=== PATIENT | male | born 1960 | race Two or more races ===

== ENCOUNTER 2021-02-02 15:27 | Observation (INO) | payer OTHER ==
[2021-02-02] MEDS ORDERED: ASPIRIN 81 MG PO STA (15:57)
--- NOTE | 2021-02-02 16:09 | ED ---
Recheck HPI - General Chief Complaint: Recheck/Abnormal Lab/Rx Stated Complaint: Sent by pcp Time Seen by Provider: 02/02/21 15:52 Source: patient Mode of arrival: ambulatory Limitations: no limitations - History of Present Illness Initial Comments: 60-year-old male with past history of hypertension that has since resolved with lifestyle changes with no other doors past medical history presenting to the ER today for chief complaint of sent for positive troponin. Patient states he went for an annual visit to his physician,. And mention that he has had increasing indigestion after eating for the past month. He states he has noticed some jaw pain he denies any arm pain chest pressure diaphoresis. Patient denies any shortness of breath leg swelling calf pain or history of DVT pulmonary embolism. Patient denies and recent surgeries, injuries or immobilization. Patient states that he had some routine labs drawn as well as a troponin by Dr. Sinha today and was told that he had elevated heart enzymes a few hours after leaving. HE states he had ate, showered and worked out in this time frame, he denies experiencing symptoms. Denies indigestion> Denies experiencing the indigestion when walking or working out ever. Patient states his BP is elevated but he states he was told he could be having a heart attack and is now stressed out. Patient otherwise appear in no distress, nondiaphoretic. He is pleasant without levign sign. EKG obtained in advanced triage. - Related Data Home Medications Medication Instructions Recorded Confirmed No Known Home Medications 02/02/21 02/02/21 Allergies Allergy/AdvReac Type Severity Reaction Status Date / Time No Known Allergies Allergy Verified 02/02/21 17:01 Review of Systems ROS Statement: Those systems with pertinent positive or pertinent negative responses have been documented in the HPI. ROS Other: All systems not noted in ROS Statement are negative. Past Medical History Past Medical History: GERD/Reflux History of Any Multi-Drug Resistant Organisms: None Reported Past Surgical History: No Surgical Hx Reported Past Psychological History: No Psychological Hx Reported Smoking Status: Never smoker Past Alcohol Use History: Rare Past Drug Use History: None Reported General Exam - General Exam Comments Initial Comments: General: The patient is awake and alert, in no distress Eye: Pupils are equal, round and reactive to light, extra-ocular movements are intact. No nystagmus. There is normal conjunctiva bilaterally. No signs of icterus. Ears, nose, mouth and throat: There are moist mucous membranes and no oral lesions. Neck: The neck is supple, there is no tenderness or JVD. Cardiovascular: There is a regular rate and rhythm. No murmur, rub or gallop is appreciated. Respiratory: Lungs are clear to auscultation, respirations are non-labored, breath sounds are equal. No wheezes, stridor, rales, or rhonchi. Gastrointestinal: Soft, non-distended, non-tender abdomen without masses or organomegaly noted. There is no rebound or guarding present. Musculoskeletal: Normal ROM, no tenderness. Strength 5/5. Sensation intact. Pulses equal bilaterally 2+. Neurological: A&O x 3. CN II-XII intact, There are no obvious motor or sensory deficits. Coordination appears grossly intact. Speech is normal. Skin: Skin is warm and dry and no rashes or lesions are noted. No LE edema Psychiatric: Cooperative, appropriate mood & affect, normal judgment. Limitations: no limitations Course Vital Signs 02/02/21 02/02/21 02/02/21 15:38 17:18 17:51 Temperature 98.6 F Pulse Rate 84 76 Respiratory 18 18 Rate Blood Pressure 159/105 167/103 170/89 O2 Sat by Pulse 97 98 Oximetry 02/02/21 18:20 Temperature Pulse Rate 66 Respiratory 18 Rate Blood Pressure 162/95 O2 Sat by Pulse Oximetry Medical Decision Making - Medical Decision Making 60-year-old male presenting from patient positive troponin. Indigestion times one month. None currently patient is symptomatic throughout his visit in the ER. Patient troponin here negative chest x-ray clear. Patient will be admitted for cardiology consultation and possible stress testing as deemed necessary. Dr. Duncan agreeable to care plan and spoke [facility] Dr. Evans who accepted admission. Serial troponins pending - Lab Data Result diagrams: 02/02/21 17:00 02/02/21 17:00 Lab Results 02/02/21 02/02/21 02/02/21 Range/Units 17:00 17:00 17:00 WBC 7.3 (3.8-10.6) k/uL RBC 4.46 (4.30-5.90) m/uL Hgb 14.9 (13.0-17.5) gm/dL Hct 41.0 (39.0-53.0) % MCV 92.0 (80.0-100.0) fL MCH 33.3 (25.0-35.0) pg MCHC 36.2 (31.0-37.0) g/dL RDW 12.6 (11.5-15.5) % Plt Count 213 (150-450) k/uL MPV 9.0 Neutrophils % 71 % Lymphocytes % 19 % Monocytes % 7 % Eosinophils % 2 % Basophils % 1 % Neutrophils # 5.1 (1.3-7.7) k/uL Lymphocytes # 1.4 (1.0-4.8) k/uL Monocytes # 0.5 (0-1.0) k/uL Eosinophils # 0.1 (0-0.7) k/uL Basophils # 0.0 (0-0.2) k/uL PT 10.2 (9.0-12.0) sec INR 1.0 (<1.2) APTT 23.0 (22.0-30.0) sec Sodium 142 (137-145) mmol/L Potassium 4.2 (3.5-5.1) mmol/L Chloride 101 (98-107) mmol/L Carbon Dioxide 27 (22-30) mmol/L Anion Gap 14 mmol/L BUN 22 H (9-20) mg/dL Creatinine 1.04 (0.66-1.25) mg/dL Est GFR (CKD-EPI)AfAm >90 (>60 ml/min/1.73 sqM) Est GFR (CKD-EPI)NonAf 79 (>60 ml/min/1.73 sqM) Glucose 99 (74-99) mg/dL Calcium 10.2 (8.4-10.2) mg/dL Magnesium 2.1 (1.6-2.3) mg/dL Total Bilirubin 2.1 H (0.2-1.3) mg/dL AST 40 (17-59) U/L ALT 49 (4-49) U/L Alkaline Phosphatase 85 (38-126) U/L Troponin I (0.000-0.034) ng/mL NT-Pro-B Natriuret Pep pg/mL Total Protein 8.5 H (6.3-8.2) g/dL Albumin 5.2 H (3.5-5.0) g/dL 02/02/21 02/02/21 Range/Units 17:00 17:00 WBC (3.8-10.6) k/uL RBC (4.30-5.90) m/uL Hgb (13.0-17.5) gm/dL Hct (39.0-53.0) % MCV (80.0-100.0) fL MCH (25.0-35.0) pg MCHC (31.0-37.0) g/dL RDW (11.5-15.5) % Plt Count (150-450) k/uL MPV Neutrophils % % Lymphocytes % % Monocytes % % Eosinophils % % Basophils % % Neutrophils # (1.3-7.7) k/uL Lymphocytes # (1.0-4.8) k/uL Monocytes # (0-1.0) k/uL Eosinophils # (0-0.7) k/uL Basophils # (0-0.2) k/uL PT (9.0-12.0) sec INR (<1.2) APTT (22.0-30.0) sec Sodium (137-145) mmol/L Potassium (3.5-5.1) mmol/L Chloride (98-107) mmol/L Carbon Dioxide (22-30) mmol/L Anion Gap mmol/L BUN (9-20) mg/dL Creatinine (0.66-1.25) mg/dL Est GFR (CKD-EPI)AfAm (>60 ml/min/1.73 sqM) Est GFR (CKD-EPI)NonAf (>60 ml/min/1.73 sqM) Glucose (74-99) mg/dL Calcium (8.4-10.2) mg/dL Magnesium (1.6-2.3) mg/dL Total Bilirubin (0.2-1.3) mg/dL AST (17-59) U/L ALT (4-49) U/L Alkaline Phosphatase (38-126) U/L Troponin I <0.012 (0.000-0.034) ng/mL NT-Pro-B Natriuret Pep 65 pg/mL Total Protein (6.3-8.2) g/dL Albumin (3.5-5.0) g/dL Disposition Clinical Impression: Indigestion, Elevated troponin I level Disposition: ADMITTED IP TO THIS HOSP Condition: Stable Is patient prescribed a controlled substance at d/c from ED?: No Time of Disposition: 17:51 Decision to Admit Reason: Admit from EC Decision Date: 02/02/21 Decision Time: 17:51
[2021-02-02 17:12] LABS: Basophils % (A) 1 %; Eosinophils # (A) 0.1 k/uL (0-0.7); Eosinophils % (A) 2 %; HGB 14.9 gm/dL (13.0-17.5); Lymphocytes # (A) 1.4 k/uL (1.0-4.8); Lymphocytes % (A) 19 %; MCH 33.3 pg (25.0-35.0); MCHC 36.2 g/dL (31.0-37.0); Monocytes # (A) 0.5 k/uL (0-1.0); Monocytes % (A) 7 %; Neutrophils # (A) 5.1 k/uL (1.3-7.7); Neutrophils % (A) 71 %; Platelet Count 213 k/uL (150-450); RBC 4.46 m/uL (4.30-5.90); RDW 12.6 % (11.5-15.5); WBC 7.3 k/uL (3.8-10.6)
[2021-02-02 17:21] LABS: ALT 49 U/L (4-49); AST 40 U/L (17-59); African American GFR (CKD) >90 (>60 ml/min/1.73 sqM); Albumin 5.2 g/dL (3.5-5.0); Alkaline Phosphatase 85 U/L (38-126); Anion Gap 14 mmol/L; Blood Urea Nitrogen 22 mg/dL (9-20); Calcium 10.2 mg/dL (8.4-10.2); Carbon Dioxide 27 mmol/L (22-30); Chloride 101 mmol/L (98-107); Glucose 99 mg/dL (74-99); Magnesium 2.1 mg/dL (1.6-2.3); Non-African American GFR(CKD) 79 (>60 ml/min/1.73 sqM); Potassium 4.2 mmol/L (3.5-5.1); Sodium 142 mmol/L (137-145); Total Bilirubin 2.1 mg/dL (0.2-1.3); Total Protein 8.5 g/dL (6.3-8.2)
[2021-02-02 17:22] LABS: Prothrombin Time 10.2 sec (9.0-12.0)
[2021-02-02] MEDS ORDERED: hydrALAZINE HCL 20 MG/ML 1 ML VIAL IVP STA (17:30)
--- NOTE | 2021-02-02 18:13 | XR ---
EXAMINATION TYPE: XR chest 2V DATE OF EXAM: 02/02/2021 COMPARISON: NONE HISTORY: Chest pain TECHNIQUE: 2 views FINDINGS: Heart and mediastinum are normal. Lungs are clear. Diaphragm is normal. There are chest juan antonio ds. IMPRESSION: Normal chest
[2021-02-03 07:02] VITALS: TEMP 97.5
[2021-02-03] MEDS ORDERED: ASPIRIN 81 MG PO SCH (09:00)
[2021-02-03] MEDS ORDERED: LISINOPRIL-HCTZ 20-25 MG 1 EACH TAB PO SCH (09:00)
[2021-02-03 09:54] LABS: Chol/HDL Ratio 5.29; LDL Cholesterol,Calculated 116.2 mg/dL (0.0-131.0); VLDL Calculation 46.8 mg/dL (5.00-40.00)
--- NOTE | 2021-02-03 11:34 | P.CRDCN ---
History of Present Illness History of present illness: HISTORY OF PRESENTING ILLNESS This is a pleasant 60-year-old male past medical history significant for hypertension in the past however with diet and exercise he has not been on medication regimen for over a year. He denies prior history of coronary artery disease and does not follow in the office with a certified registered nurse practitioner. We have been asked to see in consultation for chest pain. He has been experiencing symptoms of mid-sternal chest burning after he eats. The discomfort is also worse at night specifically when he lays flat and he as an associated acid taste in his mouth. He has been taking over the counter medications periodically that seem to work initially however the symptoms return. He saw his PCP who niall labs yesterday. After leaving the appointment he went home and ran for 30 minutes. He denies having exertional chest pain or shortness of breath and does exercise r egularly. He was called by his PCP office later in the day and sent to ER for an elevated troponin. Apparently the level was 0.041 according to office staff at Dr. Sinha's office. He is seen and examined resting comfortably on the stretcher in ER in no acute distress. Blood pressure since admission has been consistently elevated. He was given one dose of IV hydralazine. This morning he is 172/102., DIAGNOSTICS EKG reveals sinus mechanism with no acute ST or T-wave abnormalities with left anterior fasicular block. Chest xray negative for an acute cardiopulmonary process. Laboratory reviewed, CBC unremarkable, sodium 142, potassium 4.2, creatinine 1.04, magnesium 2.1, cardiac enzymes negative x3, [id number] and HDL 38. He currently takes no daily medications. REVIEW OF SYSTEMS At the time of my exam: CONSTITUTIONAL: Denies fever or chills. CARDIOVASCULAR: Denies chest pain, shortness of breath, orthopnea, PND or palpitations. RESPIRATORY: Denies cough. GASTROINTESTINAL: Denies abdominal pain, diarrhea, constipation, nausea or vomiting. MUSCULOSKELETAL: Denies myalgias. NEUROLOGIC: Denies numbness, tingling, headacbe or weakness. ENDOCRINE: Denies fatigue, weight change, polydipsia or polyurina. GENITOURINARY: Denies burning, hematuria or urgency with micturation. HEMATOLOGIC: Denies history of anemia or bleeding. PHYSICAL EXAMINATION Blood pressure 172/102 heart rate 61 afebrile and maintaining oxygen saturation on room air. CONSTITUTIONAL: No apparent distress. HEENT: Head is normocephalic. Pupils are equal, round. Sclerae anicteric. Mucous membranes of the mouth are moist. No JVD. No carotid bruit. CHEST EXAMINATION: Lungs are clear to auscultation. No chest wall tenderness is noted on palpation or with deep breathing. HEART EXAMINATION: Regular rate and rhythm. S1, S2 heard. No murmurs, gallops or rub. ABDOMEN: Soft, nontender. Positive bowel sounds. EXTREMITIES: 2+ peripheral pulses, no lower extremity edema and no calf tenderness. NEUROLOGIC EXAMINATION: Patient is awake, alert and oriented x3. ASSESSMENT Chest pain, suggestive of GERD Mild troponin leak of unclear significance at an outpatient lab Hypertension PLAN An acute coronary event has been ruled out. Unclear of the significance of the mild troponin leak. He is quite active daily and has never had symptoms of angina with exercise. Clinically his symptoms are almost class GERD. However, we will perform a stress test for further evaluation. Obtain 2D echocardiogram and doppler study to assess cardiac structure and function. Initiate lisinopril/hctz to be given this morning before stress testing. If stress test and echo are normal he can be discharged from a cardiac perspective. Follow up with Dr. Newby in the office in 1-2 weeks. Thank you kindly for this consultation. Nurse Practitioner note has been reviewed, I agree with a documented findings and plan of care. Patient was seen and examined. Past Medical History Past Medical History: GERD/Reflux History of Any Multi-Drug Resistant Organisms: None Reported Past Surgical History: No Surgical Hx Reported Past Psychological History: No Psychological Hx Reported Smoking Status: Never smoker Past Alcohol Use History: Rare Past Drug Use History: None Reported Medications and Allergies Home Medications Medication Instructions Recorded Confirmed Type No Known Home Medications 02/02/21 02/02/21 History Allergies Allergy/AdvReac Type Severity Reaction Status Date / Time No Known Allergies Allergy Verified 02/02/21 17:01 Physical Exam Vitals: Vital Signs Temp Pulse Resp BP Pulse Ox 02/03/21 07:00 97.5 F L 61 18 172/102 97 02/03/21 04:00 62 17 152/93 98 02/03/21 00:51 97.0 F L 63 18 165/103 98 02/02/21 22:35 52 L 16 164/98 97 02/02/21 21:30 98.1 F 59 L 16 162/95 98 02/02/21 19:46 66 16 160/98 96 02/02/21 18:20 66 18 162/95 02/02/21 17:51 170/89 02/02/21 17:18 76 18 167/103 98 02/02/21 15:38 98.6 F 84 18 159/105 97 Intake and Output 02/02/21 02/03/21 02/03/21 22:59 06:59 14:59 Other: Weight 99.79 kg Results 02/02/21 17:00 02/02/21 17:00 Cardiac Enzymes 02/02/21 02/02/21 02/02/21 Range/Units 17:00 17:00 19:14 AST 40 (17-59) U/L Troponin I <0.012 <0.012 (0.000-0.034) ng/mL 02/02/21 Range/Units 22:25 AST (17-59) U/L Troponin I <0.012 (0.000-0.034) ng/mL Coagulation 02/02/21 Range/Units 17:00 PT 10.2 (9.0-12.0) sec APTT 23.0 (22.0-30.0) sec CBC 02/02/21 Range/Units 17:00 WBC 7.3 (3.8-10.6) k/uL RBC 4.46 (4.30-5.90) m/uL Hgb 14.9 (13.0-17.5) gm/dL Hct 41.0 (39.0-53.0) % Plt Count 213 (150-450) k/uL Comprehensive Metabolic Panel 02/02/21 Range/Units 17:00 Sodium 142 (137-145) mmol/L Potassium 4.2 (3.5-5.1) mmol/L Chloride 101 (98-107) mmol/L Carbon Dioxide 27 (22-30) mmol/L BUN 22 H (9-20) mg/dL Creatinine 1.04 (0.66-1.25) mg/dL Glucose 99 (74-99) mg/dL Calcium 10.2 (8.4-10.2) mg/dL AST 40 (17-59) U/L ALT 49 (4-49) U/L Alkaline Phosphatase 85 (38-126) U/L Total Protein 8.5 H (6.3-8.2) g/dL Albumin 5.2 H (3.5-5.0) g/dL Intake and Output 02/02/21 02/03/21 02/03/21 22:59 06:59 14:59 Other: Weight 99.79 kg 02/02/21 17:00 02/02/21 17:00
[2021-02-03 11:48] VITALS: BP 123/101; PULSE 80; RESP 16
--- NOTE | 2021-02-03 13:33 | ECHOF ---
Referral Reason:cp MEASUREMENTS -------- HEIGHT: 185.4 cm WEIGHT: 99.8 kg BP: RVIDd: 3.6 cm (< 3.3) IVSd: 1.2 cm (0.6 - 1.1) LVIDd: 4.3 cm (3.9 - 5.3) LVPWd: 1.3 cm (0.6 - 1.1) IVSs: 1.4 cm LVIDs: 3.0 cm LVPWs: 1.4 cm LA Diam: 3.8 cm (2.7 - 3.8) LAESV Index (A-L): 17.93 ml/m Ao Diam: 3.6 cm (2.0 - 3.7) AV Cusp: 1.5 cm (1.5 - 2.6) MV EXCURSION: 21.171 mm (> 18.000) MV EF SLOPE: 82 mm/s (70 - 150) EPSS: 0.2 cm MV E Alcides: 0.53 m/s MV DecT: 211 ms MV A Alcides: 0.73 m/s MV E/A Ratio: 0.73 RAP: 5.00 mmHg RVSP: 25.35 mmHg FINDINGS -------- Sinus rhythm. This was a technically good study. LV size, wall thickness and systolic function are normal, with an EF greater than 55%. The left tonie tricular size is normal. The right ventricle is normal in size. Normal LA size by volume 22+/-6 ml/m2. The right atrial size is normal. There is mild aortic valve sclerosis. Trace to mild aortic regurgitation. Mild mitral annular calcification present. Mild mitral regurgitation is present. Mild tricuspid regurgitation present. Right ventricular systolic pressure is normal at < 35 mmHg. There is no pulmonic regurgitation present. The aortic root size is normal. There is no pericardial effusion. CONCLUSIONS -------- 1. LV size, wall thickness and systolic function are normal, with an EF greater than 55%. 2. The left ventricular size is normal. 3. The right ventricle is normal in size. 4. Normal LA size by volume 22+/-6 ml/m2. 5. The right atrial size is normal. 6. There is mild aortic valve sclerosis. 7. Trace to mild aortic regurgitation. 8. Mild mitral annular calcification present. 9. Mild mitral regurgitation is present. 10. Mild tricuspid regurgitation present. 11. The aortic root size is normal. 12. There is no pericardial effusion. STUDENT DEVELOPMENT COORDINATOR: Eunice Simons RDCS
--- NOTE | 2021-02-03 13:44 | P.STRESS ---
- Stress Test Note Stress Test Results/Findings: Exam Performed: stress echo exercise with con Exam Date: 02/03/21 Reason for Exam: cp Height: 6 ft 3 in Weight: 99.79 kg Protocol: stress echo Stage: III Duration of Exercise: 08.24 Resting Heart Rate: 89 Resting Blood Pressure: 144/98 Maximum Achieved Heart Rate: 164 Maximum Achieved Blood Pressure: 201/109 85% PMHR: 137 100% PMHR: 98 METS: 8.7 Technologist Comment: Stress Test Results/Findings: Patient underwent exercise stress echo with a Fer protocol treadmill stress test. Patient exercised into Stage 3 for a total of 8 minutes and 24 seconds reaching a total of 8.7 METS. Patient's maximum heart rate was 164 which represented 98 % age-predicted maximum heart rate. Stress EKG portion: At baseline patient's EKG showed normal sinus rhythm, normal axis, no significant ST or T-wave abnormalities. At peak exercise, EKG showed no change from baseline. Stress echo portion: 2-D echocardiogram was performed in the parasternal long, personal short, apical 2 and apical four-chamber views at rest, peak exercise and in recovery. At baseline, echocardiogram showed left ventricular ejection fraction 60 % without wall motion abnormalities. With peak exercise, echocardiogram shows improvement in left ventricular ejection fraction, increase contractility, decrease in left ventricular dimension without wall motion abnormalities consistent with a normal response to exercise. Conclusions: 1. Normal EKG and echo response to exercise without evidence of inducible ischemia. 2. Fair exercise capacity.
[2021-02-03] MEDS ORDERED: PANTOPRAZOLE 40 MG TABLET PO SCH (21:00)
--- NOTE | 2021-02-03 21:29 | P.HPIM ---
History of Present Illness H&P Date: 02/03/21 Chief Complaint: Abnormal troponin History of presenting complaint: This is a pleasant 60-year-old patient, follows the Dr. Bc Sinha. Rather in good health. Patient does the treadmill every day. Very active. Patient has been getting of the chest heartburn when he lies down.present on and off according to last 2 years. More prominent recently. He decided to go and see his family doctor. They did draw troponin that was apparently positive. There is also questionable jaw pain. He does take Rolaids at times. Presented to the ER for the for a cardiac workup no prior cardiac history. Review of systems: GEN.: None EYES: None HEENT: None NECK: None RESPIRATORY: None CARDIOVASCULAR: None GASTROINTESTINAL: As above GENITOURINARY: None MUSCULOSKELETAL: None LYMPHATICS: None HEMATOLOGICAL: None PSYCHIATRY: None NEUROLOGICAL: None Past medical history to include: GERD Social history: Retired from [employer]. Nonsmoker. Alcohol rarely. Family history: Reviewed, noncontributory to presentation Physical examination: VITAL SIGNS: 98.6, 84, 18, 159/105, 97% room air GENERAL: BMI 27.5, reclining in bed, comfortable. EYES: Pupils equal. Conjunctiva normal. HEENT: External appearance of nose and ears normal, oral cavity grossly normal. NECK: JVD not raised; masses not palpable. HEART: First and second heart sounds are normal; no edema. LUNGS: Respiratory rate normal; clear to auscultation. ABDOMEN: Soft, nontender, liver spleen not palpable, no masses palpable. PSYCH: Alert and oriented x3; mood and affect normal. NEUROLOGICAL: Cranial nerves grossly intact; no facial asymmetry, power and sensation grossly intact. LYMPHATICS: No lymph nodes palpable in the axilla and neck INVESTIGATIONS, reviewed in the clinical context: WBC 7.3 hemoglobin 14.9 platelets 213 potassium 4.2 creatinine 1.04 Troponin I 3 all negative Cholesterol 201 LDL 116 Coronavirus [PCR]-not detected EKG tracing personally reviewed by me-normal sinus rhythm Chest x-ray film personally reviewed by me-lungs clear Assessment and plan: -The patient gets central chest burning especially when he lays down. He's had indigestion going on for quite some time. More so recently. Has not had EGD before. Does take Rolaids when necessary. Most likely this is GERD with reflux esophagitis. -Anterior chest pain likely from GERD. Rule out a cardiac cause -Essential hypertension. Started on lisinopril hydrochlorothiazide. Cardiology was consulted. Daughter the stress test and a 2-D echocardiogram. Discussed with the patient and . Patient will be put on PPI. 8 outpatient EGD after a few weeks depending on clinical response Past Medical History Past Medical History: GERD/Reflux History of Any Multi-Drug Resistant Organisms: None Reported Past Surgical History: No Surgical Hx Reported Past Psychological History: No Psychological Hx Reported Smoking Status: Never smoker Past Alcohol Use History: Rare Past Drug Use History: None Reported Medications and Allergies Home Medications Medication Instructions Recorded Confirmed Type Aspirin 81 mg PO DAILY chew 02/03/21 Rx Lisinopril-Hctz 20-25 mg 1 each PO DAILY #1 tab 02/03/21 Rx [Zestoretic 20-25] Pantoprazole [Protonix] 40 mg PO HS #30 tablet. 02/03/21 Rx Allergies Allergy/AdvReac Type Severity Reaction Status Date / Time No Known Allergies Allergy Verified 02/02/21 17:01 Physical Exam Vitals: Vital Signs Temp Pulse Resp BP Pulse Ox 02/03/21 07:00 97.5 F L 61 18 172/102 97 02/03/21 04:00 62 17 152/93 98 02/03/21 00:51 97.0 F L 63 18 165/103 98 02/02/21 22:35 52 L 16 164/98 97 02/02/21 21:30 98.1 F 59 L 16 162/95 98 02/02/21 19:46 66 16 160/98 96 02/02/21 18:20 66 18 162/95 02/02/21 17:51 170/89 02/02/21 17:18 76 18 167/103 98 02/02/21 15:38 98.6 F 84 18 159/105 97 Intake and Output 02/02/21 02/03/21 02/03/21 22:59 06:59 14:59 Other: Weight 99.79 kg Results CBC & Chem 7: 02/02/21 17:00 02/02/21 17:00 Labs: Abnormal Lab Results - Last 24 Hours (Table) 02/02/21 02/03/21 Range/Units 17:00 05:34 BUN 22 H (9-20) mg/dL Total Bilirubin 2.1 H (0.2-1.3) mg/dL Total Protein 8.5 H (6.3-8.2) g/dL Albumin 5.2 H (3.5-5.0) g/dL Triglycerides 234.0 H (0.0-149.0) mg/dL Cholesterol 201 H (0-200) mg/dL VLDL Cholesterol, Calc 46.80 H (5.00-40.00) mg/dL HDL Cholesterol 38.0 L (40.0-60.0) mg/dL
--- NOTE | 2021-02-03 21:32 | P.DS ---
Providers Date of admission: 02/02/21 17:19 Expected date of discharge: 02/03/21 Attending physician: Jimmy Evans Consults: 02/02/21 17:49 Consult Physician Urgent Consulting Provider: Bassam Lopez Consult Reason/Comments: indigestion x 1 month, elevated outpatient troponin 0.041 Do you want consulting provider notified?: Yes Primary care physician: Bc Sinha [facility] Course: Chief Complaint: Abnormal troponin History of presenting complaint: This is a pleasant 60-year-old patient, follows the Dr. Bc Sinha. Rather in good health. Patient does the treadmill every day. Very active. Patient has been getting of the chest heartburn when he lies down.present on and off according to last 2 years. More prominent recently. He decided to go and see his family doctor. They did draw troponin that was apparently positive. There is also questionable jaw pain. He does take Rolaids at times. Presented to the ER for the for a cardiac workup no prior cardiac history. Troponin 3 were negative. 2-D echocardiogram showed preserved LV function. No wall motion abnormality. Exercise stress echocardiogram was reported to be negative. Patient to follow-up with GI as outpatient for EGD. Put on PPI. Consultation: Dr. 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 Nonsmoker. Alcohol rarely. Family history: Reviewed, noncontributory to presentation Physical examination: VITAL SIGNS: Blood pressure 123/101 GENERAL: BMI 27.5, reclining in bed, comfortable. EYES: Pupils equal. Conjunctiva normal. HEENT: External appearance of nose and ears normal, oral cavity grossly normal. NECK: JVD not raised; masses not palpable. HEART: First and second heart sounds are normal; no edema. LUNGS: Respiratory rate normal; clear to auscultation. ABDOMEN: Soft, nontender, liver spleen not palpable, no masses palpable. PSYCH: Alert and oriented x3; mood and affect normal. INVESTIGATIONS, reviewed in the clinical context: WBC 7.3 hemoglobin 14.9 platelets 213 potassium 4.2 creatinine 1.04 Troponin I 3 all negative Cholesterol 201 LDL 116 Coronavirus [PCR]-not detected EKG tracing personally reviewed by me-normal sinus rhythm Chest x-ray film personally reviewed by me-lungs clear 2-D echocardiogram: EF 55-60% Stress echocardiogram: Negative for ischemia Assessment and plan: -The patient gets central chest burning especially when he lays down. He's had indigestion going on for quite some time. More so recently. Has not had EGD before. Does take Rolaids when necessary. Most likely this is GERD with reflux esophagitis. -Anterior chest pain likely from GERD. Rule out a cardiac cause -Essential hypertension. Started on lisinopril hydrochlorothiazide. Disposition: Home Patient Condition at Discharge: Stable Plan - Discharge Summary New Discharge Prescriptions: New Aspirin 81 mg PO DAILY chew Pantoprazole [Protonix] 40 mg PO HS #30 tablet. Lisinopril-Hctz 20-25 mg [Zestoretic 20-25] 1 each PO DAILY #1 tab Discharge Medication List Aspirin 81 mg PO DAILY chew 02/03/21 [Rx] Lisinopril-Hctz 20-25 mg [Zestoretic 20-25] 1 each PO DAILY #1 tab 02/03/21 [Rx] Pantoprazole [Protonix] 40 mg PO HS #30 tablet. 02/03/21 [Rx] Follow up Appointment(s)/Referral(s): Javi Newby DO [STAFF PHYSICIAN] - 2 Weeks Bc Sinha MD [Primary Care Provider] - 1-2 days Viviana Bustillo MD [STAFF PHYSICIAN] - 2 Weeks Patient Instructions/Handouts: Chest Pain (DC) Discharge Disposition: HOME SELF-CARE
[2021-02-04] MEDS ORDERED: PANTOPRAZOLE 40 MG TABLET PO SCH (07:30)
== END 2021-02-03 14:46 | disposition home or self-care (01) ==
LOC: EC 15:27 → 6NMEDSUR 17:19
PROVIDERS: ADMIT Hospitalist; ATTEND Hospitalist
DX: K30 Functional dyspepsia (principal); R79.89 Other specified abnormal findings of blood chemistry; K21.00 Gastro-esophageal reflux disease with esophagitis, without bleeding; I10 Essential (primary) hypertension; Z20.822 Contact with and (suspected) exposure to COVID-19; Z79.82 Long term (current) use of aspirin; Z79.899 Other long term (current) drug therapy
CPT/HCPCS: 96374; 99285 ×2; 36415; 93005 ×2; 93306; 93351; 83880; 80061; 80053; 83735; 84484; 85025; 85610; 85730; 87635; 71046; G0378 ×2; J0360; Q9950; 96361; 96366